=== PATIENT | male | born 1985 | race Caucasian/White ===

== ENCOUNTER 2023-11-10 13:00 | Emergency (ER) | payer MEDICAID ==
[~2023-11-10] VITALS: Ht 188 cm; Wt 90.9 kg
[2023-11-10] MEDS: LIDOCAINE 1% 10 ML VIAL IARTIC ONE (14:45)
[2023-11-10] MEDS: HYDROmorphone HCL 2 MG/ML SYRINGE IVP ONE (14:45)
[2023-11-10] MEDS: BUPIVACAINE HCL 0.25% 50 ML VIAL IARTIC ONE (14:45)
[2023-11-10] MEDS: SODIUM CHLORIDE 0.9% 1,000 ML IV ONE (14:45)
[2023-11-10 15:18] VITALS: O2SAT 99
[2023-11-10] MEDS: MIDAZOLAM HCL 2 MG/2 ML VIAL IVP ONE (15:18)
[2023-11-10 15:47] VITALS: TEMP 98.1
[2023-11-10] MEDS ORDERED: TRAM-559 PO (16:50)
[2023-11-10 17:14] VITALS: BP 158/86; PULSE 91; RESP 18
== END 2023-11-10 17:16 | disposition home or self-care (01) ==
LOC: EMS 13:01
DX: S43.005A Unspecified dislocation of left shoulder joint, initial encounter (principal); W19.XXXA Unspecified fall, initial encounter; Y93.89 Activity, other specified; Y92.89 Other specified places as the place of occurrence of the external cause; Y99.8 Other external cause status
CPT/HCPCS: 99284; 23650; 96374; 96361; 96375; 73030; J3490 ×2; J1170; J2250; J7030

== ENCOUNTER 2024-03-21 19:15 | Inpatient (IN) | payer SELFPAY ==
[~2024-03-21] VITALS: Ht 188 cm; Wt 93.5 kg
[~2024-03-21 19:15] MED LIST: TRAM50TA5 PO
[2024-03-21] MEDS: LORazepam 2 MG/ML VIAL IVP ONE (19:51)
[2024-03-21] MEDS: SODIUM CHLORIDE 0.9% 1,000 ML IV ONE (19:52)
[2024-03-21 19:55] LABS: BASOPHILS % (AUTO) 0.3 % (0.0-2.0); EOSINOPHILS % (AUTO) 0.1 % (1.0-6.0); HEMOGLOBIN 14.3 g/dL (13.5-17.5); LYMPHOCYTES # (AUTO) 0.4 K/uL (1.0-4.8); LYMPHOCYTES % (AUTO) 6.8 % (22.0-44.0); MEAN CORPUSCULAR HEMOGLOBIN 36.3 pg (26.0-34.0); MEAN CORPUSCULAR VOLUME 107 fL (80-100); MONOCYTES # (AUTO) 0.6 K/uL (0.1-1.0); MONOCYTES % (AUTO) 9.7 % (2.0-9.0); NEUTROPHILS # (AUTO) 5.2 K/uL (1.8-7.7); NEUTROPHILS % (AUTO) 83.1 % (40.0-70.0); PLATELET COUNT (AUTO) 45 K/uL (150-450); RED BLOOD CELL COUNT(AUTO) 3.93 MIL/uL (4.50-5.90); RED CELL DISTRIBUTION WIDTH 13.8 % (11.5-14.5); WHITE BLOOD COUNT (AUTO) 6.2 K/uL (4.5-11.0)
[2024-03-21 20:02] LABS: ANION GAP 20 mmol/L (8-16); CARBON DIOXIDE 21 mmol/L (22-29); CHLORIDE 93 mmol/L (98-107); CREATININE 1.21 mg/dL (0.60-1.30); GLOMERULAR FILTR. RATE CALC > 60 mL/min (>60); GLUCOSE,RANDOM 114 mg/dL (70-110); POTASSIUM 3.5 mmol/L (3.5-5.1); SODIUM SERUM 134 mmol/L (136-145); UREA NITROGEN, BLOOD 12 mg/dL (7-18)
[2024-03-21 20:08] LABS: ALANINE AMINOTRANSFERASE 78 U/L (12-78); ALBUMIN 4.4 g/dL (3.4-5.0); ALCOHOL, BLOOD (SERUM) 7 mg/dL (0-10); ALKALINE PHOSPHATASE 92 U/L (46-116); ASPARTATE AMINOTRANSFERASE 273 U/L (15-37); BILIRUBIN,TOTAL 2.2 mg/dL (0.1-1.0); TOTAL PROTEIN, SERUM 8.3 g/dL (6.4-8.2)
[2024-03-21 20:15] LABS: RBC MORPHOLOGY COMMENT ABNORMAL RBC MORPH
[2024-03-21] MEDS: MAGNESIUM SULFATE 2 GM, MVI, ADULT NO.1 WITH VIT K 10 ML, THIAMINE 100 MG, FOLIC ACID 1... IV ONE (21:48)
[2024-03-21] MEDS ORDERED: LORazepam 2 MG TABLET PO PRN (23:15)
[2024-03-22] VITALS (7 sets, daily range): BP systolic 139–162; BP diastolic 93–102; PULSE 81–98; RESP 17–19; TEMP 98–98.5
[2024-03-22] MEDS ORDERED: LORazepam 2 MG TABLET PO PRN (07:00)
[2024-03-22] MEDS: LORazepam 2 MG TABLET PO SCH (09:00)
[2024-03-23 03:53] VITALS: BP 144/91; PULSE 78; RESP 18; TEMP 98.2
[2024-03-23 07:47] VITALS: BP 145/97; PULSE 71; RESP 19; TEMP 98.1
[2024-03-23] MEDS: DOCUSATE SODIUM 100 MG CAPSULE PO SCH (08:13)
[2024-03-23] MEDS: PANTOPRAZOLE SODIUM 40 MG DR TABLET PO SCH (08:13)
[2024-03-23 10:56] VITALS: BP 148/92; PULSE 80; RESP 18; TEMP 98
[2024-03-23 14:47] VITALS: BP 143/98; PULSE 94; RESP 19; TEMP 98.1
[2024-03-24] MEDS ORDERED: LORazepam 1 MG TABLET PO PRN (07:00)
[2024-03-24] MEDS ORDERED: LORazepam 1 MG TABLET PO SCH (09:00)
[2024-03-25] MEDS ORDERED: LORazepam 1 MG TABLET PO PRN (07:00)
== END 2024-03-23 14:50 | disposition left against medical advice (07) | DRG 101 ==
LOC: EMS 19:15 → EDH 23:29 → 5N 03-22 00:20
PROVIDERS: ADMIT Hospitalist; ATTEND Hospitalist
DX: G40.89 Other seizures (principal); F10.939 Alcohol use, unspecified with withdrawal, unspecified; Y90.0 Blood alcohol level of less than 20 mg/100 ml; Z53.29 Procedure and treatment not carried out because of patient's decision for other reasons; Z79.899 Other long term (current) drug therapy
CPT/HCPCS: 70450; 71045; 80053; 85025; 99285; G0378; G0480; J2060; J3411; J3475; J3490; J7030; 36415-L1; 36415-TC